=== PATIENT | male | born 2005 | race African-American/Black ===

== ENCOUNTER 2025-05-31 13:24 | Inpatient (IN) | payer OTHER ==
[~2025-05-31] VITALS: Ht 177.8 cm; Wt 89.0 kg
[2025-05-31] MEDS: FAMOTIDINE 20 MG/2 ML VIAL IVP ONE (14:03)
[2025-05-31] MEDS: ONDANSETRON HCL 4 MG/2 ML VIAL IVP ONE (14:03)
[2025-05-31] MEDS: SODIUM CHLORIDE 0.9% 1,000 ML IV ONE (14:03)
[2025-05-31 14:10] LABS: PLATELET COUNT (AUTO) 233 K/uL (150-450); RED BLOOD CELL COUNT(AUTO) 6.01 MIL/uL (4.50-5.90); RED CELL DISTRIBUTION WIDTH 12.7 % (11.5-14.5); WHITE BLOOD COUNT (AUTO) 19.4 K/uL (4.5-11.0)
[2025-05-31 14:15] LABS: CALCIUM, TOTAL 8.6 mg/dL (8.8-10.5); CREATININE 1.63 mg/dL (0.60-1.30); GLOMERULAR FILTR. RATE CALC 54 mL/min (>60); SODIUM SERUM 134 mmol/L (136-145); UREA NITROGEN, BLOOD 14 mg/dL (7-18)
[2025-05-31 14:19] LABS: GLUCOSE,RANDOM 479 mg/dL (70-110)
[2025-05-31 14:22] LABS: ASPARTATE AMINOTRANSFERASE 17 U/L (15-37); TOTAL PROTEIN, SERUM 7.7 g/dL (6.4-8.2)
[2025-05-31 14:27] LABS: TROPONIN I-HIGH SENSITIVITY 4 ng/L (<76)
[2025-05-31] MEDS ORDERED: INSULIN REGULAR, HUMAN 100 UNITS/ML ONE (14:29)
[2025-05-31] MEDS ORDERED: POTASSIUM CHLORIDE 40 MEQ in SODIUM CHLORIDE 0.45% 1,000 ML IV PRN (14:30)
[2025-05-31] MEDS ORDERED: SODIUM CHLORIDE 0.45% 1,000 ML IV PRN (14:30)
[2025-05-31] MEDS ORDERED: DEXTROSE 50%-WATER 25 GM/50 ML SYRINGE IVP PRN ×2 (14:30→23:30)
[2025-05-31 14:34] LABS: ALCOHOL, BLOOD (SERUM) < 3 mg/dL (0-10)
[2025-05-31] MEDS: SODIUM CHLORIDE 0.9% 1,000 ML IV SCH (14:36)
[2025-05-31 14:37] LABS: ACETONE,BLOOD 1:32 (NEGATIVE)
[2025-05-31] MEDS: INSULIN REGULAR, HUMAN 100 UNITS/ML IVP ONE (14:37)
[2025-05-31 14:55] LABS: APPEARANCE,URINE CLEAR (CLEAR); GLUCOSE, URINE (UA) >=1000 mg/dL (NEGATIVE); LEUKOCYTE ESTERASE ,URINE NEGATIVE (NEGATIVE); NITRATE,URINE NEGATIVE (NEGATIVE); OCCULT BLOOD,URINE SMALL (NEGATIVE); SPECIFIC GRAVITIY, URINE 1.020 (1.003-1.030)
[2025-05-31] MEDS: INSULIN REGULAR, HUMAN 100 UNITS in SODIUM CHLORIDE 0.9% 99 ML IV PRN (15:04)
[2025-05-31] MEDS ORDERED: ACETAMINOPHEN 325 MG TABLET PO PRN (15:30)
[2025-05-31] MEDS ORDERED: ONDANSETRON HCL 4 MG/2 ML VIAL IVP PRN (15:30)
[2025-05-31] MEDS: INSULIN REGULAR, HUMAN 100 UNITS/ML IVP PRN (15:43)
[2025-05-31 15:56] LABS: GLUCOMETER DEV NAME(LOC) ER.7; GLUCOSE,POINT OF CARE 406 MG/DL (70-110)
[2025-05-31 16:50] LABS: GLUCOMETER DEV NAME(LOC) ER.7; GLUCOSE,POINT OF CARE 323 MG/DL (70-110)
[2025-05-31 17:55] LABS: GLUCOMETER DEV NAME(LOC) ER.7; GLUCOSE,POINT OF CARE 275 MG/DL (70-110)
[2025-05-31] MEDS: DEXTROSE 5%-0.45% SODIUM CHL 1,000 ML IV PRN (18:42)
[2025-05-31 18:46] LABS: GLUCOMETER DEV NAME(LOC) ER.7; GLUCOSE,POINT OF CARE 229 MG/DL (70-110)
[2025-05-31 18:47] LABS: CALCIUM, TOTAL 8.3 mg/dL (8.8-10.5); CREATININE 1.64 mg/dL (0.60-1.30); GLOMERULAR FILTR. RATE CALC > 60 mL/min (>60); GLUCOSE,RANDOM 271 mg/dL (70-110); SODIUM SERUM 139 mmol/L (136-145); UREA NITROGEN, BLOOD 13 mg/dL (7-18)
[2025-05-31] MEDS: POTASSIUM CHL 20 MEQ/0.45% NS 1,000 ML IV PRN (19:02)
[2025-05-31 19:56] LABS: GLUCOMETER DEV NAME(LOC) ER.7; GLUCOSE,POINT OF CARE 221 MG/DL (70-110)
[2025-05-31] MEDS: DOCUSATE SODIUM 100 MG CAPSULE PO SCH (20:19)
[2025-05-31] MEDS: CHLORHEXIDINE GLUCONATE 2% TOWELETTE [2'S/6'S] TP SCH (22:12)
[2025-05-31 22:57] LABS: CALCIUM, TOTAL 7.9 mg/dL (8.8-10.5); CREATININE 1.32 mg/dL (0.60-1.30); GLOMERULAR FILTR. RATE CALC > 60 mL/min (>60); GLUCOSE,RANDOM 135 mg/dL (70-110); SODIUM SERUM 138 mmol/L (136-145); UREA NITROGEN, BLOOD 10 mg/dL (7-18)
[2025-05-31 23:11] LABS: GLUCOMETER DEV NAME(LOC) ICUN.7; GLUCOSE,POINT OF CARE 137 MG/DL (70-110)
[2025-05-31 23:11] LABS: GLUCOMETER DEV NAME(LOC) ICUN.7; GLUCOSE,POINT OF CARE 171 MG/DL (70-110)
[2025-05-31 23:49] LABS: PHOSPHORUS 1.9 mg/dL (2.5-4.9)
[2025-05-31] MEDS: INSULIN GLARGINE,HUM.REC.ANLOG 100 UNITS/ML SQ ONE (23:51)
[2025-06-01] VITALS: BP 128/74; PULSE 105; RESP 16; TEMP 99; O2SAT 98
[2025-06-01 00:11] LABS: GLUCOMETER DEV NAME(LOC) ICU.S7; GLUCOSE,POINT OF CARE 160 MG/DL (70-110)
[2025-06-01 04:00] VITALS: BP 121/72; PULSE 97; RESP 15; TEMP 98.8; O2SAT 98
[2025-06-01] MEDS: INSULIN LISPRO 100 UNITS/ML SQ PRN (06:29)
[2025-06-01 06:30] LABS: PLATELET COUNT (AUTO) 201 K/uL (150-450); RED BLOOD CELL COUNT(AUTO) 5.18 MIL/uL (4.50-5.90); RED CELL DISTRIBUTION WIDTH 12.6 % (11.5-14.5); WHITE BLOOD COUNT (AUTO) 13.7 K/uL (4.5-11.0)
[2025-06-01 06:35] LABS: CALCIUM, TOTAL 8.2 mg/dL (8.8-10.5); CREATININE 1.31 mg/dL (0.60-1.30); GLOMERULAR FILTR. RATE CALC > 60 mL/min (>60); GLUCOSE,RANDOM 310 mg/dL (70-110); SODIUM SERUM 135 mmol/L (136-145); UREA NITROGEN, BLOOD 13 mg/dL (7-18)
[2025-06-01 06:36] LABS: PHOSPHORUS 2.7 mg/dL (2.5-4.9)
[2025-06-01 06:50] LABS: GLUCOMETER DEV NAME(LOC) ICUN.7; GLUCOSE,POINT OF CARE 357 MG/DL (70-110)
[2025-06-01 08:00] VITALS: BP 103/57; PULSE 95; RESP 16; TEMP 99.2; O2SAT 98
[2025-06-01] MEDS: FAMOTIDINE 20 MG TABLET PO SCH (08:06)
[2025-06-01] MEDS ORDERED: DEXMEDETOMIDINE 400 MCG/NS 100 ML IV PRN (08:45)
[2025-06-01] MEDS ORDERED: POTASSIUM CHLORIDE 40 MEQ in SODIUM CHLORIDE 0.45% 1,000 ML IV PRN (10:45)
[2025-06-01] MEDS ORDERED: SODIUM CHLORIDE 0.45% 1,000 ML IV PRN (10:45)
[2025-06-01] MEDS: INSULIN REGULAR, HUMAN 100 UNITS in SODIUM CHLORIDE 0.9% 99 ML IV PRN (11:16)
[2025-06-01] MEDS: INSULIN REGULAR, HUMAN 100 UNITS/ML IVP ONE (11:17)
[2025-06-01] MEDS: POTASSIUM CHL 20 MEQ/0.45% NS 1,000 ML IV PRN (11:18)
[2025-06-01] MEDS: DEXTROSE 5%-0.45% SODIUM CHL 1,000 ML IV PRN (11:18)
[2025-06-01 12:00] VITALS: BP 127/77; PULSE 100; RESP 14; TEMP 99.5; O2SAT 100
[2025-06-01] MEDS: INSULIN REGULAR, HUMAN 100 UNITS/ML IVP PRN (12:19)
[2025-06-01 13:05] LABS: PLATELET COUNT (AUTO) 217 K/uL (150-450); RED BLOOD CELL COUNT(AUTO) 5.01 MIL/uL (4.50-5.90); RED CELL DISTRIBUTION WIDTH 12.9 % (11.5-14.5); WHITE BLOOD COUNT (AUTO) 13.3 K/uL (4.5-11.0)
[2025-06-01 13:26] LABS: GLUCOMETER DEV NAME(LOC) ICUN.7; GLUCOSE,POINT OF CARE 306 MG/DL (70-110)
[2025-06-01 13:26] LABS: GLUCOMETER DEV NAME(LOC) ICUN.7; GLUCOSE,POINT OF CARE 318 MG/DL (70-110)
[2025-06-01 15:16] LABS: GLUCOMETER DEV NAME(LOC) ICU.S7; GLUCOSE,POINT OF CARE 211 MG/DL (70-110)
[2025-06-01 15:16] LABS: GLUCOMETER DEV NAME(LOC) ICUN.7; GLUCOSE,POINT OF CARE 282 MG/DL (70-110)
[2025-06-01 16:00] VITALS: BP 110/67; PULSE 96; RESP 21; TEMP 99.2; O2SAT 99
[2025-06-01 16:21] LABS: GLUCOMETER DEV NAME(LOC) ICU.S7; GLUCOSE,POINT OF CARE 166 MG/DL (70-110)
[2025-06-01 16:30] LABS: CALCIUM, TOTAL 8.3 mg/dL (8.8-10.5); CREATININE 1.25 mg/dL (0.60-1.30); GLOMERULAR FILTR. RATE CALC > 60 mL/min (>60); GLUCOSE,RANDOM 180 mg/dL (70-110); SODIUM SERUM 137 mmol/L (136-145); UREA NITROGEN, BLOOD 10 mg/dL (7-18)
[2025-06-01] MEDS: DEXTROSE 50%-WATER 25 GM/50 ML SYRINGE IVP PRN (17:25)
[2025-06-01 17:46] LABS: GLUCOMETER DEV NAME(LOC) ICUN.7; GLUCOSE,POINT OF CARE 65 MG/DL (70-110)
[2025-06-01 17:46] LABS: GLUCOMETER DEV NAME(LOC) ICU.S7; GLUCOSE,POINT OF CARE 111 MG/DL (70-110)
[2025-06-01 18:40] LABS: GLUCOMETER DEV NAME(LOC) ICU.S7; GLUCOSE,POINT OF CARE 174 MG/DL (70-110)
[2025-06-01 20:00] VITALS: BP 126/67; PULSE 107; RESP 12; TEMP 98.9; O2SAT 99
[2025-06-01 20:11] LABS: GLUCOMETER DEV NAME(LOC) ICU.S7; GLUCOSE,POINT OF CARE 184 MG/DL (70-110)
[2025-06-01 20:11] LABS: GLUCOMETER DEV NAME(LOC) ICUN.7; GLUCOSE,POINT OF CARE 260 MG/DL (70-110)
[2025-06-01 20:20] LABS: CALCIUM, TOTAL 7.9 mg/dL (8.8-10.5); CREATININE 1.12 mg/dL (0.60-1.30); GLOMERULAR FILTR. RATE CALC > 60 mL/min (>60); GLUCOSE,RANDOM 218 mg/dL (70-110); SODIUM SERUM 136 mmol/L (136-145); UREA NITROGEN, BLOOD 8 mg/dL (7-18)
[2025-06-01] MEDS ORDERED: DEXTROSE 50%-WATER 25 GM/50 ML SYRINGE IVP PRN (21:00)
[2025-06-01] MEDS: ETHYL ALCOHOL 62% ANTISEPTIC NASAL SANITIZER 0.6 ML AMPUL NASAL SCH (21:17)
[2025-06-01] MEDS: INSULIN GLARGINE,HUM.REC.ANLOG 100 UNITS/ML SQ SCH (21:30)
[2025-06-02] VITALS: BP 120/66; PULSE 99; RESP 15; TEMP 98.8; O2SAT 100
[2025-06-02 00:20] LABS: GLUCOMETER DEV NAME(LOC) ICU.S7; GLUCOSE,POINT OF CARE 167 MG/DL (70-110)
[2025-06-02 00:20] LABS: GLUCOMETER DEV NAME(LOC) ICU.S7; GLUCOSE,POINT OF CARE 193 MG/DL (70-110)
[2025-06-02] MEDS: INSULIN LISPRO 100 UNITS/ML SQ PRN (00:27)
[2025-06-02 00:31] LABS: GLUCOMETER DEV NAME(LOC) ICU.S7; GLUCOSE,POINT OF CARE 282 MG/DL (70-110)
[2025-06-02 04:00] VITALS: BP 120/67; PULSE 97; RESP 11; TEMP 98.9; O2SAT 98
[2025-06-02 06:24] LABS: PLATELET COUNT (AUTO) 239 K/uL (150-450); RED BLOOD CELL COUNT(AUTO) 5.02 MIL/uL (4.50-5.90); RED CELL DISTRIBUTION WIDTH 12.8 % (11.5-14.5); WHITE BLOOD COUNT (AUTO) 8.6 K/uL (4.5-11.0)
[2025-06-02 06:49] LABS: ASPARTATE AMINOTRANSFERASE 14 U/L (15-37); CALCIUM, TOTAL 8.0 mg/dL (8.8-10.5); CREATININE 1.11 mg/dL (0.60-1.30); GLOMERULAR FILTR. RATE CALC > 60 mL/min (>60); GLUCOSE,RANDOM 265 mg/dL (70-110); SODIUM SERUM 136 mmol/L (136-145); TOTAL PROTEIN, SERUM 6.2 g/dL (6.4-8.2); UREA NITROGEN, BLOOD 8 mg/dL (7-18)
[2025-06-02 08:00] VITALS: BP 119/61; PULSE 103; RESP 11; TEMP 98.7; O2SAT 100
[2025-06-02 08:01] LABS: ACETONE,BLOOD 1:2 (NEGATIVE)
[2025-06-02 08:21] LABS: GLUCOMETER DEV NAME(LOC) ICUN.7; GLUCOSE,POINT OF CARE 217 MG/DL (70-110)
[2025-06-02 12:00] VITALS: BP 131/84; PULSE 112; RESP 25; TEMP 98.9; O2SAT 100
[2025-06-02 13:36] LABS: GLUCOMETER DEV NAME(LOC) ICU.S7; GLUCOSE,POINT OF CARE 259 MG/DL (70-110)
[2025-06-02 16:00] VITALS: BP 115/80; PULSE 95; RESP 20; TEMP 98.6; O2SAT 100
[2025-06-02] MEDS ORDERED: INSU3INS3 SQ (16:54)
[2025-06-02] MEDS ORDERED: NEED-463 SQ (16:54)
[2025-06-02 17:25] LABS: GLUCOMETER DEV NAME(LOC) ICU.S7; GLUCOSE,POINT OF CARE 327 MG/DL (70-110)
[2025-06-02] MEDS: INSULIN GLARGINE,HUM.REC.ANLOG 100 UNITS/ML SQ SCH (17:41)
[2025-06-02 19:35] LABS: GLUCOMETER DEV NAME(LOC) ICU.S7; GLUCOSE,POINT OF CARE 306 MG/DL (70-110)
== END 2025-06-02 18:20 | disposition home or self-care (01) | DRG 420 ==
LOC: EDSEX 13:24 → EMS 13:24 → EDH 15:21 → ICU 20:56
PROVIDERS: ADMIT Internal Medicine; ATTEND Internal Medicine
DX: E11.10 Type 2 diabetes mellitus with ketoacidosis without coma (principal); E43 Unspecified severe protein-calorie malnutrition; N17.9 Acute kidney failure, unspecified; R65.10 Systemic inflammatory response syndrome (SIRS) of non-infectious origin without acute organ dysfunction; Z91.148 Patient's other noncompliance with medication regimen for other reason; Z83.3 Family history of diabetes mellitus; Z79.4 Long term (current) use of insulin; Z68.28 Body mass index [BMI] 28.0-28.9, adult
CPT/HCPCS: 71045; 80048; 80053; 80076; 81001; 82009; 82962; 83036; 83735; 83880; 83930; 84100; 84484; 85025; 87081; 93005; 99291; G0480; J1815; J2405; J3480; J3490; J7030; J7050; 36415-L1; 36415-TC